=== PATIENT | female | born 1960 | race Caucasian/White ===

== ENCOUNTER → 2024-02-12 18:11 | Outpatient (REF) | payer MEDICARE, OTHER, SELFPAY | LOC: MRI 18:11 | PROVIDERS: ATTENDING PHYSICIAN Specialist; FAMILY PHYSICIAN Family Medicine | DX: M25.512 Pain in left shoulder (principal) | CPT/HCPCS: 73221 ==

== ENCOUNTER 2024-03-12 06:18 | Day surgery (SDC) | payer MEDICARE, OTHER, SELFPAY ==
[2024-02-26 13:20] VITALS: BMI 29.1
[2024-02-26 14:17] LABS: Hematocrit 38.8 % (37.0-47.0); Hemoglobin 13.2 g/dL (12.0-16.0); Mean Corpuscular Hgb 30.1 pg (27.0-31.0); Mean Corpuscular Volume 88.6 fL (81.0-99.0); Mean Platelet Volume 10.3 fL (7.4-10.4); Platelet Count 184 10^3/uL (130-400); Red Blood Cell Count 4.38 10^6/uL (4.20-5.40); Red Cell Dist. Width 13.1 % (11.5-14.5); White Blood Cell Count 4.7 10^3/uL (4.8-10.8)
[2024-02-26 14:55] LABS: ALT (SGPT) 28 U/L (0-35); AST (SGOT) 30 U/L (14-36); Albumin 3.7 g/dl (3.5-5.0); Alkaline Phosphatase 72 U/L (38-126); Blood Urea Nitrogen 28 mg/dl (7-17); Calcium 9.6 mg/dl (8.4-10.2); Carbon Dioxide 26 mmol/L (22-30); Chloride 105 mmol/L (98-107); Estimated Creatinine Clearance 42 ml/min; Glucose 68 mg/dl (70-99); Potassium 4.7 mmol/L (3.5-5.1); Sodium 141 mmol/L (135-145); Total Bilirubin 2.7 mg/dl (0.2-1.3); Total Protein 6.5 g/dl (6.3-8.2); eGFR 42.54
[2024-02-27 07:57] LABS: Glycohemoglobin (HgbA1c) 5.3 % (4.0-5.6)
--- NOTE | 2024-03-07 10:37 | PTCARENOTE ---
Chyna in Dr. Turk's office made aware of Cr 1.4 and GFR 42.54.
[2024-03-11 08:23] VITALS: BMI 29.1
[2024-03-12] VITALS (10 sets, daily range): BP systolic 91–185; BP diastolic 56–156
[2024-03-12] MEDS: CELEBREX 200 MG PO (07:53)
[2024-03-12] MEDS: TYLENOL 1000 MG PO (07:54)
[2024-03-12] MEDS: DILAUDID 0.5 MG IV (11:22)
[2024-03-12] MEDS: DILAUDID 0.25 MG IV (11:39)
--- NOTE | 2024-03-12 12:51 | PTCARENOTE ---
Patient back to sds, rt arm tegaderm noted to rt forearm skintear. Tegaderm removed carefully with damp cloth. No further tear occured with removal. Skin tear measured as 4 cm by 1 cm at its widest location. Vaseline gauze applied with extra
vaselinealso , 4x4's and spandage to ensure will not stick when removal at home. Pt teaching done with pt and daughter and they are aware to change dsg daily at home with supplies sent home . Patt Jeffries RN
[2024-03-12] MEDS: ANCEF 5 IV (13:04)
--- NOTE | 2024-03-14 09:58 | PTCARENOTE ---
Patient called back after post follow up call (on 03/13/24) and stated that she does not want to complain about her care and that everything is ok. Patient had been upset that she incurred a skin tear while here as a patient when the follow up call
was done with her on 03/13. Patient now states that she is happy and that when she took the call it was bad timing and she was in a panic. Patient states that she spoke with her doctors office about bandage removal (because patient was worried about
getting another skin tear) and they reassured her that it would be fine. Patient was given adhesive removal for dressing removal at doctors office and patient is going to bring it with her to the follow up appointment for her shoulder.
[employer] mechanical manager made aware.
== END 2024-03-12 13:50 | disposition home or self-care (01) ==
LOC: SDS 06:18
PROVIDERS: ATTENDING PHYSICIAN Specialist; FAMILY PHYSICIAN Family Medicine
PROC: 0LS40ZZ Reposition Left Upper Arm Tendon, Open Approach (ICD-10-PCS; 2024-03-12)
PROC: 0RRK00Z Replacement of Left Shoulder Joint with Reverse Ball and Socket Synthetic Substitute, Open Approach (ICD-10-PCS; 2024-03-12)
DX: M19.012 Primary osteoarthritis, left shoulder (principal)
CPT/HCPCS: 23472; 73020; 80053; 83036; 85027; 87070; 93005; C1713; C1776

== ENCOUNTER → 2025-02-06 11:05 | Outpatient (REF) | payer MEDICARE, OTHER, SELFPAY | LOC: HWRAD 11:05 | PROVIDERS: ATTENDING PHYSICIAN Specialist; FAMILY PHYSICIAN Family Medicine | DX: M75.42 Impingement syndrome of left shoulder (principal); Z96.612 Presence of left artificial shoulder joint | CPT/HCPCS: 73200 ==